=== PATIENT | female | born 1955 | race Caucasian/White ===

== ENCOUNTER 2020-07-07 09:19 | Emergency (ER) | payer BC, OTHER ==
[~2020-07-07] VITALS: Ht 167.6 cm; Wt 64.9 kg
--- NOTE | ~2020-07-07 | EMS ---
[address] [address] EMS Patient Care Report Name: AMINA WARD Room #: DEP JUSTIN Carnes#: [id number] Admission: 07/07/20 Attend Phys: Discharge: 07/07/20 Date of : 53 Report #: [id number] THIS REPORT FOR: //name// Report Transmitted: 07/07/2020 20:20 EMS Care Summary [facility] MED-ACT Incident [id number] @ 07/07/2020 08:38 Incident Location [address] [place] [address] Dr Falk, [id number] Patient AMINA WARD Female, 64 Years 1955 Patient Address [address] [place] [address] [place] [address] Patient History Hypertension (HTN), Patient Allergies No known allergies, Patient Medications Temazepam, Chief Complaint Pt. indicates she took a bottle of Temazepam. Disposition Transported No Lights/[place] Reason Overdose/Poisoning/Ingestion Transported To [facility] Narrative Arrived to find a 64 yr old female patient lying in bed with her beside her and two pill bottles on the nightstand next to her with her eyes closed and responsive to verbal stimuli. According to the patient she had suspected her had been seeing someone else the last few months. Last night the [facility] [address] [place] [address] EMS Patient Care Report Name: AMINA WARD Room #: DEP ER Deyvi#: [id number] Admission: 07/07/20 Attend Phys: Discharge: 07/07/20 Date of : 53 Report #: [id number] patient's confessed to cheating on her and he left the house about 0130 in the morning. About 0200 the patient states she took 30, 15 mg Temazepam. Patient also left a suicide note on the kitchen table, in it she told her rojas. A limited history was obtained from the patient because she was talking very softly and mostly nodding her head. Patient also nodded yes to having alcohol to drink last night. Patient pointed to the bottle of pills on her nightstand and indicated it was a full bottle. The RX was filled on 07/02/2020. Patient denies any previous suicide attempts and they have not been in marital counseling. A: See assessment tab. Physical exam. Vital signs. We rolled the patient onto a sheet and lifted her off the bed and onto the cot. Moved to unit. ECG. 12-lead. IV. En route to [facility]. Vital signs and ECG were monitored during transport. Patient was given about 100 mls of NS during transport. Patient rested comfortably on the cot and did not develop any new complaints. We contacted [facility] on the [facility] radio. Patient was still verbally responsive upon arrival at the hospital. Patient care was transferred to an ED RN in room 1 at [facility] and the cot sheet was utilized to transfer patient care. Patient requested ambulance transport to [facility]. Initial Vitals @09:10P: 56,R: 16,BP: 104/49,Pain: 0/10,GCS: 14,Glucose: 72,SpO2: 98,Revised Trauma: 12,AR Suspected: false @08:57P: 56,R: 16,BP: 105/70,GCS: 14,SpO2: 98,Revised Trauma: 12,AR Suspected: false @09:01P: 56,R: 16,BP: 108/76,GCS: 14,Temp: 98F,Glucose: 72,SpO2: 100,Revised Trauma: 12,AR Suspected: false @08:47P: 62,R: 16,BP: 92/60,Pain: 0/10,GCS: 14,Temp: 98F,SpO2: 98,Revised Trauma: 12, @08:48P: 58,R: 16,BP: 97/65,Pain: 0/10,GCS: 14,SpO2: 97,Revised Trauma: 12,AR Suspected: false Assessments @08:46MENTAL:Person Oriented,Unresponsive,Place Oriented,Event Oriented,Time Oriented,SKIN:HEENT:Eyes: Left Pupil: 3-mm,Eyes: Right Pupil: 3-mm,LUNG SOUNDS:Left Upper: No Abnormalities,Right Upper: No Abnormalities,Left Lower: No Abnormalities,Right Lower: No Abnormalities,ABDOMEN:Left Upper: No Abnormalities,Right Upper: No Abnormalities,Left Lower: No Abnormalities,Right Lower: No Abnormalities,PELVIS//GI:EXTREMITIES:Left Arm: No Abnormalities,Right Arm: No Abnormalities,Left Leg: No Abnormalities,Right Leg: No Abnormalities,PULSE:NEURO: [facility] [address] [place] [address] EMS Patient Care Report Name: AMINA WARD Room #: DEP JUSTIN Carnes#: [id number] Admission: 07/07/20 Attend Phys: Discharge: 07/07/20 Date of : 53 Report #: [id number] Impression Behavioral/psychiatric episode Procedures @08:5712-Lead ECGResponse: UnchangedSucceeded@08:58Normal Saline (.9% NaCl) 100cc (18 ga) Site: Antecubital-LeftResponse: UnchangedFailed@08:45Surgical Mask on PatientResponse: Unchanged Timeline 08:36,Call Received 08:36,Psap Call 08:38,Dispatched 08:38,En Route 08:41,On Scene 08:43,At Patient 08:45,Surgical Mask on Patient,Response: Unchanged 08:47,BP: 92/60 M,PULSE: 62,RR: 16 R,SPO2: 98 Ox,ETCO2: ,BG: ,PAIN: 0,GCS: 14, 08:48,BP: 97/65 M,PULSE: 58,RR: 16 R,SPO2: 97 Ox,ETCO2: ,BG: ,PAIN: 0,GCS: 14, 08:57,12-Lead ECG,Response: UnchangedSucceeded, 08:57,BP: 105/70 M,PULSE: 56,RR: 16 R,SPO2: 98 Ox,ETCO2: ,BG: ,PAIN: ,GCS: 14, 08:58,Normal Saline (.9% NaCl) 100cc 18 ga Site: Antecubital-Left,Response: UnchangedFailed, 09:01,BP: 108/76 M,PULSE: 56,RR: 16 R,SPO2: 100 Ox,ETCO2: ,B,PAIN: ,GCS: 14, 09:04,Depart Scene 09:10,BP: 104/49 M,PULSE: 56,RR: 16 R,SPO2: 98 Ox,ETCO2: ,B,PAIN: 0,GCS: 14, 09:12,At Destination 09:36,Call Closed Disclaimer v1.1 Copyright 2020 [employer] This EMS Care Summary contains data elements from the applicable legal record (which may be displayed differently). It is designed to provide pertinent information for the following purposes: continuity of care, clinical quality, and state data reporting. The complete legal record is available to ED staff and administrators of the receiving hospital in [facility]'s Patient Tracker. All data is provided "as is."
[2020-07-07 09:50] LABS: ABSOLUTE NEUTROPHILS 1.8 thou/uL (1.4-8.2); BE(vivo) -4.6 mmol/L (-2 to +3); EOSINOPHILS 4.8 % (0.0-3.0); HCO3 21.6 mmol/L (22.0-26.0); HEMATOCRIT 41.2 % (37.0-47.0); HEMOGLOBIN 13.4 gm/dL (12.0-15.0); LYMPHOCYTES 42.3 % (24.0-44.0); MCH 32.7 pg (26.0-34.0); MCHC 32.5 g/dL (28.0-37.0); MCV 100.7 fL (80.0-100.0); MONOCYTES 9.3 % (1.0-8.0); PCO2 43.6 mmHg (35.0-45.0); PLATELET COUNT 198 thou/uL (150-400); PO2 76.7 mmHg (80.0-100.0); POLYS 42.6 % (36.0-66.0); RBC 4.09 mil/uL (4.20-5.00); RDW 13.4 % (10.5-14.5); WBC 4.2 thou/uL (4.0-11.0); sO2 94.2 % (92.0-98.0)
[2020-07-07 09:51] LABS: pH 7.312 (7.360-7.450)
[2020-07-07 10:10] LABS: ANION GAP 10 mmol/L (7-16); BUN 25 mg/dL (7-18); CALCIUM 8.7 mg/dL (8.5-10.1); CHLORIDE 107 mmol/L (98-107); CO2 24 mmol/L (21-32); CREATININE 1.4 mg/dL (0.6-1.0); GLUCOSE 84 mg/dL (74-106); POTASSIUM 4.3 mmol/L (3.5-5.1); SODIUM 141 mmol/L (136-145)
[2020-07-07 10:16] LABS: ALBUMIN 3.3 g/dL (3.4-5.0); SGOT 30 U/L (15-37); SGPT 32 U/L (30-65); TOTAL BILIRUBIN 0.2 mg/dL (0.2-1.0); TOTAL PROTEIN 6.7 g/dL (6.4-8.2)
[2020-07-07 10:41] LABS: SALICYLATE < 2.8 mg/dL (2.8-20.0)
[2020-07-07 11:01] LABS: URINE BILIRUBIN NEGATIVE (Negative); URINE BLOOD NEGATIVE (Negative); URINE CLARITY CLEAR; URINE COLOR YELLOW; URINE GLUCOSE-RANDOM* NEGATIVE (Negative); URINE KETONES NEGATIVE (Negative); URINE LEUKOCYTES-REFLEX NEGATIVE (Negative); URINE NITRITE-REFLEX NEGATIVE (Negative); URINE PROTEIN (DIPSTICK) NEGATIVE (Negative); URINE SPECIFIC GRAVITY 1.015 (1.005-1.035); URINE UROBILINOGEN 0.2 E.U./dl (0.2-1.0)
[2020-07-07 11:09] LABS: AMP/METHAMP Negative (Negative); BARBITURATES Negative (Negative); BENZODIAZEPINES POSITIVE (Negative); COCAINE Negative (Negative); METHADONE Negative (Negative); OPIATES Negative (Negative); PCP Negative (Negative)
--- NOTE | 2020-07-07 15:57 | EKG ---
[address] [place] [address] ELECTROCARDIOGRAM REPORT Name: AMINA WARD [id number] Admission: 07/07/20 Attend Phys: Discharge: Date of : 53 Report #: [id number] [facility] ED Test Date: 2020-07-07 Test Time: 09:29:11 Pat Name: AMINA WARD Department: Room: Gender: F [employer]er: NATASHA : 1955 Requested By: Dejon Lr Order Number: [id number] MD: Elvis Swain Measurements Intervals [place] Rate: 58 P: 50 LA: 167 QRS: -22 QRSD: 100 T: 3 QT: 474 QTc: 466 Interpretive Statements Sinus rhythm Borderline left axis deviation No previous ECG available for comparison Electronically Signed On 07-07-2020 15:56:56 ELEMENT BURNER by Elvis Swain [email or web address] <ELECTRONICALLY SIGNED> By: Elvis Swain MD, [facility] 07/07/20 1556 0929 0929 Elvis Swain MD, FACC /EPI
[2020-07-07 17:35] VITALS: BP 120/77
== END 2020-07-07 17:45 ==
LOC: ER 09:19
PROVIDERS: Emergency Medicine
DX: F32.9 Major depressive disorder, single episode, unspecified (principal); R45.851 Suicidal ideations; T42.4X2A Poisoning by benzodiazepines, intentional self-harm, initial encounter; Z88.2 Allergy status to sulfonamides; Z20.822 Contact with and (suspected) exposure to COVID-19; Y92.89 Other specified places as the place of occurrence of the external cause

== ENCOUNTER 2020-07-07 16:44 | Inpatient (IN) | payer BC, OTHER ==
[~2020-07-07] VITALS: Ht 162.6 cm; Wt 62.1 kg
--- NOTE | ~2020-07-07 | D ---
[facility] [address] DISCHARGE SUMMARY Name: AMINA WARD Room #: 517-A [facility] IN M.R.#: [id number] Admission: 07/07/20 Attend Phys: Farooq King DO Discharge: 07/09/20 Date of : 53 Report #: [id number] THIS REPORT FOR: cc: MONIKA MCHUGH APRN, MONIKA King,Farooq Feng DO ~ DATE OF SERVICE: 07/09/2020 INPATIENT PSYCHIATRIC DISCHARGE SUMMARY ATTENDING PSYCHIATRIST: Farooq King DO. SURGERY SPECIALIST: ____ and David Harrison MD, from hospitalist service. DISCHARGE DIAGNOSES: Adjustment disorder with disturbance of emotions and conduct, resolved, partner relational disorder, alcohol abuse. DISCHARGE PLAN: Activity level as tolerated. No alcohol, no illicit drugs. She is discharging to her home where she will be living alone as her has temporarily moved out. Aftercare for this patient as counseling is strongly encouraged is as follows: [facility], Bernice Davalos for psychotherapy at [phone] ____. She is encouraged to see her primary care physician within 1 month. Her daughter, Rachel, is aware of her discharge plan. DISCHARGE MEDICATIONS: Folic acid 1 mg p.o. daily; famotidine 20 mg p.o. daily; atorvastatin 20 mg p.o. at bedtime; metoprolol 50 mg p.o. daily for supplementation; atorvastatin; metoprolol, hypertension; levothyroxine 50 mcg p.o. daily, thyroid replacement; Seroquel was prescribed at 25 mg p.o. at bedtime p.r.n. She has previously taken temazepam, advising against taking now longer acting benzodiazepine due to the overdose risk. LABORATORY DATA: This admission, vitamin D level normal at 41.6, folate 17.9. The TSH is 1.896. Vitamin B12 of 922. CMP was grossly normal except BUN 25, creatinine 1.4 on admission. Blood gas was grossly normal with pO2 of 76.7, pCO2 of 43.6, pH 7.312. Chemistries already stated. Urinalysis was negative. Tox screen was positive for benzodiazepines. Blood alcohol level was 83. Salicylate ____ negative. COVID-19 PCR is negative. REASON FOR ADMISSION: For this patient as on 07/07/2020, a 64-year-old female with a significant history brought in for suicidal ideation. Apparently, she took entire 15 mg #30 prescription than prescribed by her PCP. HOSPITAL COURSE: The patient was admitted to Geriatric Psychiatry Unit. When the patient discussed, she made this overdose after learning her was having an extramarital affair. She admitted to drinking alcohol at that time. She is now remorseful and wants to live. She is a frequent caregiver for [address] [address] DISCHARGE SUMMARY Name: AMINA WARD Room #: 517-A [facility] IN M.R.#: [id number] Admission: 07/07/20 Attend Phys: Farooq King DO Discharge: 07/09/20 Date of : 53 Report #: [id number] grandchildren, which she wants to continue in. She requested discharge today after finding inpatient psychiatric hospitalization would be of limited benefit. She did not meet involuntary criteria and therefore discharging the patent. PHYSICAL EXAMINATION: VITAL SIGNS: On the day of discharge, temperature 36.9, pulse 67, respirations 16, BP 139/____, O2 sat 100%. MUSCULOSKELETAL: Normal gait and station. MENTAL STATUS EXAMINATION: This is a well-developed, well-nourished female appearing stated age. Attention intact. Concentration intact. Speech is normal in rate, volume and tone. Thought process linear, and goal-directed. Thought content focused on discharge. No psychomotor agitation or psychomotor retardation. Denied SI or HI. Denied hopelessness, helplessness. Memory not formally tested. Insight limited. Judgment fair at the time of discharge. Fund of knowledge above average. PROGNOSIS: For this patient is good if she engages in counseling and working on coping skills, avoids alcohol. By: 51 23 Farooq Kign, /nt
[2020-07-07 18:44] VITALS: BP 135/90
--- NOTE | 2020-07-07 19:26 | NUR ---
1740 PATIENT NEW ADMIT FROM HOME OVERDOSED ON TEMAZEPAM NUMBER 30. PATIENT UPON ARRIVING ON UNIT PATIENT CALM COOPERATIVE. PATIENT STATES HER HAS BEEN WITH A 39 YEAR OLD WOMAN. PATIENT STATES SHE HAS BEEN DISTRAUGHT ABOUT THE SITUATION. PATIENT'S ABDOMEN SOFT FLAT BOWEL SOUNDS PRESENT LUNGS CLEAR. PATIENT DENIES SI/HI/AH/VH AT PRESENT SHE IS SAD DEPRESSED AND WOULD LIKE HELP. WILL CONTINUE TO MONITOR PATIENT FOR SAFETY AND BEHAVIORS.
[2020-07-07 19:45] VITALS: BP 132/85
--- NOTE | 2020-07-08 02:22 | NUR ---
07-07-20 CARE TRANSFERRED 1900 PER SHIFT REPORT MESSAGE LEFT WITH FOR LIST OF HOME MEDICATION. LATER CALLED AND CONFIRMED MEDICATION AND GAVE CONSENT TO TREATMENT, AT THIS TIME NOTED PT WAS FROM [facility]. CONSULTED WELDING PROCESS ENGINEER AND AGREEMENT THIS ELECTRONIC TESTER CALLED [facility] NURSE FOUNDER AND CHIEF TECHNICAL OFFICER AND SHE UPDATED THIS ELECTRONIC TESTER THAT SHE HAD SEEN THIS PT IN ED AND RECEIVED VERBAL CONSENT AT THAT TIME FOR A VOLUNTARY ADMISSION. OBSERVED PT LEFT SIDE LYING RESTING WITH EYES CLOSED, PT EASILY AWAKEN TO VOICE AND REPOSITION SELF FROM LYING TO SITTING WITH NO DIFFICULTIES. PT AAOX4, VSS, RR EVEN AND NONLABORED ON RA, PT REPORTED SHE WANTING TO LEAVE THE HOSPITAL, DID NOT UNDERSTAND WHY SHE NEED TO BE ON THE PSYCH SIDE OF HOSPITAL, PT REPORTED SHE WAS TRYING TO WALKE HER UP. SHE REALLY DID NOT WANT TO , PT DENIES SI/HI AND PAIN AT THIS TIME. PT REPORTED BEING HUNGRY, AND SNACK PACK OBTAINED. HCP Frandy XAVIER DO CONTACTED AND ORDERS RECEIVED AND ENTERED INTO EMAR. LATER NOTED PT RESTING LEFT SIDE WITH EYES CLOSED. ZERO S/S OF ACUTE DISTRESS NOTED, PT WILL CONTINUE TO BE MONITOR PER [facility] PROTOCOL.
[2020-07-08 09:57] VITALS: BP 144/85
--- NOTE | 2020-07-08 10:37 | NUR ---
Nutrition: pt admitted with unspecified depression to [facility] unit, medication overdose. No weight/intake hx available. No indication of poor intake or weight loss on admit. No po records to review yet, pt admitted last noc. Regular diet. Pt unavailable x 2 when attempted to visit. Will attempt to visit pt again within 48 hrs to obtain further info. Low risk at present.
[2020-07-08 10:49] LABS: FOLIC ACID 17.9 ng/mL (8.6-58.9)
--- NOTE | 2020-07-08 14:32 | NUR ---
0700 ASSUMED CARE OF PATIENT, PATIENT IN ROOM AT THAT TIME. PATIENT AMB WITH STEADY GAIT. PATIENT ASKS FOR PHONE EARLY THIS AM, AFTER BREAKFAST PATIENT CALLS DAUGHTER. MEDICATION TAKEN WHOLE WITHOUT DIFFICULTY. PATIENT NOTED PICKING AT BREAKFAST BUT STATES SHE IS NOT HUNGRY. PATIENT TO ROOM AFTER BREAKFAST SITTING ON BED. LS CLEAR, BS ACTIVE, NO C/O PAIN. PATIENT STATES "IM BORED AND WANT TO KNOW WHEN i CAN LEAVE". PASTRY ASSISTANT EXPLAINED THE PROCESS OF MEETING WITH AND ANYA FOR A PLAN AND WORK ON DISCHARGE PLANNING. PATIENT CALM AND COOPERATIVE. PATIENT STATES " I ONLY TOOK MEDS TO SLEEP NOT TO OD, I GOOGLED THE MED AND IT SAID I COULD NOT OD ON THEM. PATIENT PACES HALLWAYS AND REQUESTS PHONE MULTIPLE TIME. DAUGHTER CALLED STATING "MY MOM IS TRYING TO CONVINCE US TO GET HER OUT TODAY". PATIENT HAS REQUESTED PHONE 5 TIMES AT THIS TIME. PATIENT DOES NOT ATTEND GROUPS. PATIENT GOAL FOR THE DAY IS TO GO HOME, TRIM SOME BRANCHES AND DEPENDENCY COUNSELOR GRANDAUGHTER. WILL CONTINUE TO OBSERVE PATIENT.
--- NOTE | 2020-07-08 16:36 | NUR ---
ANYA and Dr. Casarez met with the Pt. Pt denied SI/HI. Pt stated she was not attempting to committ suicide. Pt did admit to being upset about finding out her has been having an affair. Pt stated that she would like to return home but did not want her in the home, however did not have a plan for returning home. Pt is willing to participate in outpt therapy and psychiatry. ANYA provided Pt with a list of outpatient therapist near her home.
--- NOTE | 2020-07-08 16:55 | NUR ---
ANYA was able to able to talk to Rachel, Pt's daughter. Pt was a part of this phone call. SW informed Rachel or discharge recommendations. Rachel stated that Pt can stay with her after discharge. Pt will d/c 07/09/2020 @0900 home with outpatient therapy. While in office Pt was able to contact two therapy companies and left messages to set up intake appointment. Pt contacted [facility] ) and [facility] ([phone]). Pt left a message for a call back.
[2020-07-08 19:56] VITALS: BP 153/108
--- NOTE | 2020-07-09 02:46 | NUR ---
07-08-20 CARE TRANSFERRED 1899 OBSERVED PT WALKING IN HALLWAY FULL ROM AND STEADY GAIT. LATER PT AAOX4, VSS, RR EVEN AND NONLABORED ON RA. PT REPORTS FEELING BETTER, BUT SAD OVER SITUATION WITH , BUT READY TO MOVE FORWARD. PT DENIES SI/HI AND PAIN. PT HAS REMAINED CALM AND COOPERATIVE THROUGHOUT NURSING ASSESSMENT AND VERY INTERACTIVE IN SOCIAL COMMUNICATION. ZERO S/S OF ACUTE DISTRESS NOTED, PT WILL CONTINUE TO BE MONITOR PER [facility] PROTOCOL.
[2020-07-09 08:53] VITALS: BP 139/92
[2020-07-09] MEDS ORDERED: METOPROLOL SUCC50 MG PO (08:57)
[2020-07-09] MEDS ORDERED: LIPITOR 20 MG T20 M1 PO (08:57)
[2020-07-09] MEDS ORDERED: SEROQUEL 25 MG25 M1 PO (08:58)
[2020-07-09] MEDS ORDERED: PEPCID20 MG PO (08:58)
[2020-07-09] MEDS ORDERED: SYNTHROID50 MCG PO (08:59)
[2020-07-09] MEDS ORDERED: FOLIC ACID1 MG PO (08:59)
--- NOTE | 2020-07-09 09:02 | NUR ---
0700 ASSUMED CARE OF PATIENT, PATIENT UP AMB IN [place]. PATIENT CALM AND COOPERATIVE. DENIES NEEDS. PATIENT SITS IN DAYROOM FOR BREAKFAST. DENIES SI/HI, NO C/O PAIN, LS CLEAR, BS ACITVE. PATIENT GOAL IS TO GET OUT ON TIME DAUGHTER IS COMING FOR HER. NO COMPLAINTS. PATIENT AMB WITH STEADY GAIT.
[2020-07-09 10:05] VITALS: BP 139/92
--- NOTE | 2020-07-09 10:39 | NUR ---
DC INSTRUCTIONS GIVEN, VOICED UNDERSTANDING. PATIENT SPOKE WITH DR XAVIER PRIOR TO LEAVING. PATIENT DC'D @ 4520, PATIENT AMB TO ED EXIT ACCOMPANIED BY MANPOWER DEVELOPMENT SPECIALIST WITH BELONGINGS IN HAND. DAUGHTER PICKED PATIENT UP.
--- NOTE | 2020-07-09 19:08 | H ---
[facility] [place] [address] HISTORY AND PHYSICAL Name: AMINA WARD Room #: 517-A [facility] IN M.R.#: [id number] Admission: 07/07/20 Attend Phys: Farooq King DO Discharge: 07/09/20 Date of : 53 Report #: [id number] THIS REPORT FOR: cc: MONIKA MCHUGH APRN, MONIKA King,Farooq Feng DO ~ DATE OF SERVICE: 07/08/2020 INPATIENT PSYCHIATRIC EVALUATION ATTENDING PSYCHIATRIST: Farooq King DO LUNCHEONETTE MANAGER: Ehsan Elmore MD REASON FOR ADMISSION: "I took an overdose." HISTORY OF PRESENT ILLNESS: This is a 64-year-old 2, para 2 female who presented to the [facility] Emergency Room yesterday after intentional overdose on temazepam. The patient had been drinking alcohol at that time and things went down around 2:00 a.m. Apparently, she confronted her regarding suspicion of marital infidelity, which he confirmed. The left the residence to stay elsewhere. The patient took intentional overdose of temazepam prescribed by nurse practitioner, Larry at the [facility] location. The patient regarding is not wanting to be hospitalized. 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 She wants to continue to be in these role duties. She regrets to trying to kill herself. She does want counseling. She suggests her be in counseling as well. She denies history of psychiatric hospitalization, history of past suicide attempts and is restless to get out of the hospital. REVIEW OF SYSTEMS: From Emergency Room and medical consultation are as follows, 10-point review of systems was negative. LABORATORY DATA: From 07/07/2020 on CBC: H and H 13.1 and 41.2, white count 4.2, platelets 198. ABG was done, pH was 7.312, pO2 of 76.7, bicarbonate 21.6, total CO2 of 22.9. Chemistry: Sodium 141, potassium 4.3, chloride 107, bicarbonate 24, anion gap 10, BUN 25, creatinine 1.4, estimated GFR 38, glucose 84, lactic acid 1.5, calcium 8.7, total bilirubin 0.2, AST 30, ALT 32, alkaline phosphatase 63, total protein 6.7, albumin 3.3. Vitamin B12 of 922. Folate 17.9. TSH 1.896. Urinalysis was negative. Toxicology showed less than 3.8 salicylates, less than 2 acetaminophen, positive benzodiazepines. Serum alcohol level was 83. COVID-19 PCR done on 07/07/2020 was negative. The patient reports being born and raised in [place], [place]. She has a [facility] [address] [place] [address] HISTORY AND PHYSICAL Name: AMINA WARD Room #: 517-A [facility] IN ..#: [id number] Admission: 07/07/20 Attend Phys: Farooq King, DO Discharge: 07/09/20 Date of : 53 Report #: [id number] brother and a sister. She reports obtaining a bachelor's degree from the [employer] and her major was child psychology. 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 No history of service. No history of traumatic brain injury. No family history of psychiatric illness. PHYSICAL EXAMINATION: VITAL SIGNS: Temperature 36.8, pulse 84, respirations 18, BP 144/85, O2 sat 98%. MUSCULOSKELETAL: Normal gait and station. MEDICATIONS: Down the hospital, folic acid 1 mg p.o. daily, famotidine 20 mg p.o. daily, atorvastatin 20 mg p.o. at bedtime, metoprolol succinate 50 mg p.o. daily, levothyroxine 50 mcg p.o. daily, Seroquel 25 mg p.o. at bedtime p.r.n., so we will have that again available tonight. Otherwise, house PRNs. MENTAL STATUS EXAMINATION: This is a well-developed, well-nourished female appearing stated age, dressed nicely. Attention intact. Concentration intact. Speech is normal, rate, rhythm, tone. Thought process is linear and goal directed. Thought content focused on discharge. Mood and affect anxious, a bit irritable, congruent. Denied SI or HI. Denied auditory, visual, or tactile hallucinations. Some helplessness regarding her 's fidelity. No hopelessness, no suicidal intent or plan, though recent so called wanting to stay sleep for a while gesture. Insight limited. Judgment impaired Fund of knowledge above average. FORMULATION: A 64-year-old female admitted through ER after intentional overdose on temazepam in the setting of alcohol use. DIAGNOSES: At this time, adjustment disorder with disturbance of emotions and conduct partner relational disorder, unspecified anxiety. PLAN: The patient is admitted to Geriatric Psychiatry Unit, currently voluntary. Evaluate and stabilize. Social work to set up outpatient counseling as well as Psychiatry, continue hospitalization diet, likely discharge on 07/09/2020. Time spent on this case is over 90 minutes today. The patient requested to call her daughter, Rachel, which I will shortly at [phone]. <ELECTRONICALLY SIGNED> By: Farooq King DO 07/09/20 1908 1304 1331 Farooq King DO /nt
== END 2020-07-09 09:20 | disposition home or self-care (01) | DRG 882 ==
LOC: SBH
PROVIDERS: ADMIT Psychiatry & Neurology Psychiatry; ATTEND Psychiatry & Neurology Psychiatry
DX: F43.20 Adjustment disorder, unspecified (principal); N17.9 Acute kidney failure, unspecified; N18.9 Chronic kidney disease, unspecified; T42.4X1A Poisoning by benzodiazepines, accidental (unintentional), initial encounter; F68.8 Other specified disorders of adult personality and behavior; F41.9 Anxiety disorder, unspecified; I12.9 Hypertensive chronic kidney disease with stage 1 through stage 4 chronic kidney disease, or unspecified chronic kidney disease; E78.5 Hyperlipidemia, unspecified; E03.9 Hypothyroidism, unspecified; Z88.2 Allergy status to sulfonamides; Y92.89 Other specified places as the place of occurrence of the external cause
CPT/HCPCS: 10880